=== PATIENT | male | born 1990 | race Caucasian/White ===

== ENCOUNTER 2021-11-04 19:34 | Emergency (ER) | payer SELFPAY ==
[2021-11-04] MEDS ORDERED: hydrOXYzine 25 MG TAB ONE (20:58)
[2021-11-04] MEDS ORDERED: hydrOXYzine Pamoate 25 mg Capsule ONE (21:00)
[2021-11-05] MEDS ORDERED: Ziprasidone 20 MG CAP ONE (01:33)
[2021-11-06] MEDS ORDERED: Ziprasidone 20 MG CAP ONE ×2 (03:03→22:16)
[2021-11-06] MEDS ORDERED: hydrOXYzine Pamoate 25 mg Capsule ONE (12:46)
[2021-11-07] MEDS ORDERED: Ziprasidone 20 MG CAP ONE (22:21)
[2021-11-08] MEDS ORDERED: risperiDONE 1 MG TAB ONE (04:26)
[2021-11-08] MEDS ORDERED: traZODone HCl 50 MG TAB ONE (21:34)
[2021-11-09] MEDS ORDERED: Ziprasidone 20 MG CAP ONE ×2 (01:21→23:24)
== END 2021-11-10 14:31 ==
LOC: ERS 19:34
DX: R45.851 Suicidal ideations (principal)
CPT/HCPCS: 99285; Q0177